=== PATIENT | male | born 1970 | race Caucasian/White ===

== ENCOUNTER → 2023-05-29 | Outpatient (CLI) | payer BC ==
--- NOTE | 2023-05-29 16:36 | Diagnostic Imaging Report ---
INDICATION: Back pain. FINDINGS: The alignment of the lumbar spine is normal. Vertebral body heights are well-maintained. No spondylolysis or spondylolisthesis. No fracture is identified. There is some mildly prominent osteophytes along the anterior lumbar spine. There is degenerative disease at L4-L5 and L5-S1. IMPRESSION: Mild lumbar spondylosis and degenerative disc disease, as described. The degenerative disease is particularly at L4-L5 and L5-S1. Dictated by: Dictated on workstation # [id number]
== END ==
LOC: RAD 10:07
PROVIDERS: ATTEND Family Medicine
DX: M51.36 Other intervertebral disc degeneration, lumbar region (principal); M51.37 Other intervertebral disc degeneration, lumbosacral region; M47.816 Spondylosis without myelopathy or radiculopathy, lumbar region
CPT/HCPCS: 72100

== ENCOUNTER → 2023-06-24 | Outpatient (CLI) | payer BC ==
--- NOTE | 2023-06-24 09:47 | Diagnostic Imaging Report ---
INDICATION: Pre-MRI screening. There is a metallic BB noted in the left frontal scalp. No radiopaque orbital foreign body is identified. IMPRESSION: No definite radiopaque orbital foreign body is detected. Dictated by: Dictated on workstation # [id number]
--- NOTE | 2023-06-24 12:26 | Diagnostic Imaging Report ---
PROCEDURE: MRI lumbar spine without contrast. TECHNIQUE: Multiplanar, multisequence MRI of the lumbar spine was performed without contrast. INDICATION: Severe low back pain for one month. No known injury. COMPARISON: 05/29/2023. FINDINGS: 5 lumbar type vertebral bodies are visualized with the last well-formed disc space designated L5-S1. No acute fracture or dislocation is seen in the lumbar spine. Alignment is anatomic. Vertebral body heights are well-maintained. The bone marrow signal is normal. The conus terminates at the L1 level. No masses are seen associated with the conus or nerve roots of the cauda equina. No epidural collections are identified. Multilevel degenerative changes are seen in the lumbar spine with disc bulges, facet hypertrophy, and buckling of the ligamentum flavum. T12-L1: Disc bulge with central disc extrusion and cranial migration of disc contents and facet hypertrophy results in severe spinal canal stenosis and no significant foraminal narrowing. L1-L2: Broad-based disc bulge, facet hypertrophy, and buckling of the ligamentum flavum results in moderate spinal canal stenosis and moderate right and [id number] left foraminal narrowing. L2-L3: Disc osteophyte complex, facet hypertrophy, and buckling of the ligamentum flavum results in severe spinal canal stenosis and [id number] right and moderate left foraminal stenosis. L3-L4: Disc osteophyte complex, facet hypertrophy, and buckling of the ligamentum flavum results in severe spinal canal stenosis and moderate to severe bilateral foraminal stenosis. L4-L5: Broad-based disc bulge, facet hypertrophy, and buckling of the ligamentum flavum results in severe spinal canal stenosis and moderate to severe right and severe left foraminal stenosis. L5-S1: Broad-based disc bulge with annular fissure, facet hypertrophy, and buckling of the ligamentum flavum results in moderate spinal canal stenosis and severe bilateral foraminal stenosis. Paravertebral soft tissues are unremarkable. IMPRESSION: 1. No acute fracture or dislocation in the lumbar spine. 2. Advanced degenerative changes throughout the lumbar spine as described above. Dictated by: Dictated on workstation # [id number]
== END ==
LOC: RAD 09:30
PROVIDERS: ATTEND Family Medicine
DX: M47.816 Spondylosis without myelopathy or radiculopathy, lumbar region (principal); M51.26 Other intervertebral disc displacement, lumbar region; M89.38 Hypertrophy of bone, other site; M51.25 Other intervertebral disc displacement, thoracolumbar region; M48.05 Spinal stenosis, thoracolumbar region; M25.78 Osteophyte, vertebrae; M51.27 Other intervertebral disc displacement, lumbosacral region; M48.07 Spinal stenosis, lumbosacral region
CPT/HCPCS: 72148